=== PATIENT | female | born 1940 | race Caucasian/White ===

== ENCOUNTER 2017-07-22 09:14 | Day surgery (SDC) | payer MEDICARE, OTHER ==
[~2017-07-22] VITALS: Ht 167.6 cm; Wt 104.0 kg
--- NOTE | 2017-07-24 08:52 | OR ---
ADMIT: 07/22/2017 RM/LOC: [facility] MR#: [id number] [id number] SHANNAN MARIA E A [address] [place] [address] Operative/Delivery Room Report SEX: F AGE: 77 : 1940 SURGERY DATE: 07/22/2017 SURGEON: Ramirez Diaz MD JUMPBASTING FACING BASTER: None. PREOPERATIVE DIAGNOSES: 1. Lumbar spondylosis. 2. Lumbago. POSTOPERATIVE DIAGNOSES: 1. Lumbar spondylosis. 2. Lumbago. PROCEDURE PERFORMED: Bilateral lumbar medial branch block at L3, L4, L5, and S1 levels. INDICATION FOR THE PROCEDURE: The patient is a pleasant woman with history of chronic low back pain secondary to above-mentioned diagnoses, comes here for planned bilateral lumbar medial branch block. ANESTHESIA: Local without sedation. ESTIMATED BLOOD LOSS: Zero. COMPLICATIONS: None immediately evident. DESCRIPTION OF THE PROCEDURE: After the patient was seen in the preoperative area, vital signs were taken. Prior to the procedure, the risks, benefits, and alternative therapies were discussed at length. The patient's consent was obtained and updated. The patient was taken to the fluoroscopy suite and placed on the fluoroscopy table in a prone position. Pressure points were padded to comfort. Monitors were applied and a timeout performed. The lumbosacral area was prepped and draped sterilely using ChloraPrep. C-arm fluoroscopy was then brought in to identify the junction of the pedicular and transverse process. Then lidocaine 1% was applied; approximately 1 mL was used to anesthetize the skin and underlying subcutaneous tissue at bilateral L3, L4, L5 and S1 levels. At each level, a 3.5 inch 22-gauge spinal needle was used. The needle was then advanced to make contact with the superior articular facet at each level, and then needle was placed between the junction of the superior articular facet and the transfer process. Then the patient received ADMIT: 07/22/2017 RM/LOC: [facility] MR#: [id number] [id number] MARIA E CAMPBELL [address] [place] [address] Operative/Delivery Room Report SEX: F AGE: 77 : 1940 0.5 mL of 0.25% Marcaine with approximately 40 mg of Depo-Medrol at each level. The patient had reproduction of her typical pain at each level. Then we moved on to the left side and repeated the same procedure. The patient tolerated the procedure well. The patient was brought to the PACU where she recovered nicely without any complication. PLAN: The patient was examined after 20 minutes and had 30% reduction of pain. Range of motion, mainly extension, went from 0 degrees of extension to 20 degrees of extension. Discharge instructions were given. Followup as scheduled. 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 Ramirez Diaz MD/ maranda JOB #: [id number] CC: Ramirez Diaz, Attending Physician Yaz Flores, Family Physician
== END 2017-07-22 10:53 | disposition home or self-care (01) ==
LOC: SSS 09:14
PROC: BR16YZZ Fluoroscopy of Lumbar Facet Joint(s) using Other Contrast (ICD-10-PCS; principal; 2017-07-22)
PROC: 3E0T3BZ Introduction of Anesthetic Agent into Peripheral Nerves and Plexi, Percutaneous Approach (ICD-10-PCS; principal; 2017-07-22)
PROC: 3E0T33Z Introduction of Anti-inflammatory into Peripheral Nerves and Plexi, Percutaneous Approach (ICD-10-PCS; principal; 2017-07-22)
DX: G89.29 Other chronic pain (principal); M47.816 Spondylosis without myelopathy or radiculopathy, lumbar region; G62.9 Polyneuropathy, unspecified; M41.9 Scoliosis, unspecified; Z88.2 Allergy status to sulfonamides; Z88.0 Allergy status to penicillin; Z90.49 Acquired absence of other specified parts of digestive tract; Z98.890 Other specified postprocedural states; Z79.82 Long term (current) use of aspirin; Z79.899 Other long term (current) drug therapy